=== PATIENT | male | born 1980 | race Caucasian/White ===

== ENCOUNTER 2017-01-16 19:15 | Emergency (ER) | payer MEDICAID ==
[2017-01-16 19:27] VITALS: RESP 18
[2017-01-16] MEDS: SULFAMETHOX/TMP 800/160 MG 1 TAB PO ONE (20:02)
[2017-01-16] MEDS: LIDOCAINE 2% VISCOUS 15 ML UDCUP PO ONE (20:02)
[2017-01-16] MEDS: HYOSCYAMINE SULFATE 0.125 MG TAB PO ONE (20:02)
[2017-01-16] MEDS: NS 1,000 ML IV ONE (20:02)
[2017-01-16] MEDS: MAG HYDROX/AL HYDROX/SIMETH 30 ML UDCUP PO ONE (20:02)
[2017-01-16] MEDS: CEPHALEXIN 500 MG CAP PO ONE (20:02)
[2017-01-16] MEDS ORDERED: CEPHALEXIN 500 MG CAP PO ONE (20:04)
[2017-01-16 20:06] LABS: % IMMATURE GRANULYOCYTES 0.4 % (0.0-1.1); ABSOLUTE IMMATURE GRANULOCYTES 0.03 10^3/uL (0.00-0.10); ADD DIFF? NO; ADD MORPH? NO; ADD SCAN? NO; ATYPICAL LYMPHOCYTE FLAG 0 (0-99); FRAGMENT RBC FLAG 0 (0-99); HEMATOCRIT 45.1 % (40.0-51.0); HEMOGLOBIN 15.8 g/dL (13.7-17.5); LEFT SHIFT FLG 0 (0-99); LIPEMIA HEMOLYSIS FLAG 90 (0-99); MEAN CELL HEMOGLOBIN 32.2 pg (27.9-34.1); MEAN PLATELET VOLUME 9.6 fL (8.7-11.7); PLATELET CLUMPS FLAG 0 (0-99); PLATELET COUNT 289 10^3/uL (150-400); RED CELL DISTRIBUTION WIDTH 13.2 % (11.5-15.2)
--- NOTE | 2017-01-16 20:15 | EDPHY ---
H & P Time Seen by Provider: 01/16/17 19:34 HPI/ROS: CHIEF COMPLAINT: Abdominal pain HISTORY OF PRESENT ILLNESS: Patient has symptoms for the last 2 days. He thinks he might have ingested some bad spring water [place] [facility] [place]. He has some intermittent epigastric and upper abdominal "gurgling" and sweating which is crampy and severe pain for a few minutes and then resolves. Associated with some looser stools and diarrhea but no melena or coffee-ground emesis. No bright red blood per rectum. Abdominal pain is not better worse with oral intake but he has not had much to eat or drink over the last couple of days. REVIEW OF SYSTEMS: Eye: no change in vision ENT: no sore throat Cardiac: no chest pain or syncope Pulmonary: no cough or SOB Abdomen: HPI Musculoskeletal: no back pain Skin: Redness where he has a 2-day-old abrasion on his right ring finger Neuro: no headache Constitutional: no fever : no urinary symptoms A comprehensive 10 point review of systems is otherwise negative aside from elements mentioned in the history of present illness. PAST MEDICAL HISTORY: HIV with detectable viral load Social history: Tobacco smoker General Appearance: Alert and conversant, cooperative. Eyes: No scleral icterus. ENT, Mouth: Normal mucous membranes. Respiratory: Normal respiratory effort, breath sounds equal, lungs are clear to auscultation. Cardiovascular: Regular rate and rhythm. Gastrointestinal: Abdomen is soft and only mild epigastric tenderness. No rebound or guarding, normal bowel sounds, not distended. No McBurney's point tenderness. Negative Mc sign. Neurological: Alert and oriented x3. Normally conversant. Face symmetric, normal movement and sensation in all extremities. Skin: Patient has an abrasion on the proximal phalanx of the right ring finger on the dorsum with some surrounding erythema. No lymphangitis and no fluctuance. Normal range of motion of the finger. Does not have palmar tenderness. I can range it including full extension. Musculoskeletal: No peripheral edema and no joint swelling. Psychiatric: Not agitated. Emergency Department course/MDM: 2043: Labs reviewed, I think pancreatitis or hepatitis is unlikely. Gallstones unlikely. Will treat with oral antibiotics for his finger infection given he has HIV with a detectable viral load, compromised immune system. Does not have evidence of tenosynovitis or deep space infection. I think it is unlikely that he has acute surgical abdominal process. Heart rate down to 64 on discharge. The patient denies domestic violence but says sometimes he does not feel safe at home. He asks that we not do any type of reporting to anyone, including to human services or law enforcement. He tells me he does not feel that he is at risk of or injury tonight. Smoking Status: Current every day smoker Constitutional: Initial Vital Signs Temperature (C) 37.2 C 01/16/17 19:23 Heart Rate 108 H 01/16/17 19:23 Respiratory Rate 18 01/16/17 19:23 Blood Pressure 132/92 H 01/16/17 19:23 O2 Sat (%) 95 01/16/17 19:23 O2 Delivery Mode Room Air Allergies/Adverse Reactions: No Known Allergies Allergy (Unverified 04/09/16 07:15) Home Medications: Medication Instructions Recorded Cephalexin [Keflex] 500 mg PO QID #40 cap 01/16/17 Sulfamethox/Tmp 800/160 mg 1 tab PO BID@1000,2200 #20 tab 01/16/17 [Bactrim Ds] [place] 01/16/17 Medical Decision Making Differential Diagnosis: Differential diagnosis considered for abdominal pain including but not limited to appendicitis, cholecystitis, pancreatitis, gastritis, appendicitis, reflux, and urinary tract infection. - Data Points Laboratory Results: Laboratory Results 01/16/17 20:00 01/16/17 20:00 01/16/17 01/16/17 20:00 20:00 WBC 8.20 10^3/uL 10^3/uL (3.80-9.50) RBC 4.90 10^6/uL 10^6/uL (4.40-6.38) Hgb 15.8 g/dL g/dL (13.7-17.5) Hct 45.1 % % (40.0-51.0) MCV 92.0 fL fL (81.5-99.8) MCH 32.2 pg pg (27.9-34.1) MCHC 35.0 g/dL g/dL (32.4-36.7) RDW 13.2 % % (11.5-15.2) Plt Count 289 10^3/uL 10^3/uL (150-400) MPV 9.6 fL fL (8.7-11.7) Neut % (Auto) 53.4 % % (39.3-74.2) Lymph % (Auto) 33.3 % % (15.0-45.0) [place] % (Auto) 11.6 % % (4.5-13.0) Eos % (Auto) 0.9 % % (0.6-7.6) Baso % (Auto) 0.4 % % (0.3-1.7) Nucleat RBC Rel Count 0.0 % % (0.0-0.2) Absolute Neuts (auto) 4.39 10^3/uL 10^3/uL (1.70-6.50) Absolute Lymphs (auto) 2.73 10^3/uL 10^3/uL (1.00-3.00) Absolute Monos (auto) 0.95 10^3/uL H 10^3/uL (0.30-0.80) Absolute Eos (auto) 0.07 10^3/uL 10^3/uL (0.03-0.40) Absolute Basos (auto) 0.03 10^3/uL 10^3/uL (0.02-0.10) Absolute Nucleated RBC 0.00 10^3/uL 10^3/uL (0-0.01) Immature Gran % 0.4 % % (0.0-1.1) Immature Gran # 0.03 10^3/uL 10^3/uL (0.00-0.10) Sodium 141 mEq/L mEq/L (134-144) Potassium 3.8 mEq/L mEq/L (3.5-5.2) Chloride 103 mEq/L mEq/L (97-110) Carbon Dioxide 24 mEq/l mEq/l (22-31) Anion Gap 14 mEq/L mEq/L (8-16) BUN 23 mg/dL mg/dL (7-23) Creatinine 0.9 mg/dL mg/dL (0.7-1.3) Estimated GFR > 60 Glucose 99 mg/dL mg/dL (70-100) Calcium 9.6 mg/dL mg/dL (8.5-10.4) Total Bilirubin 1.8 mg/dL H mg/dL (0.1-1.4) Conjugated Bilirubin 0.4 mg/dL mg/dL (0.0-0.5) Unconjugated Bilirubin 1.4 mg/dL H mg/dL (0.0-1.1) AST 106 IU/L H IU/L (17-59) ALT 52 IU/L IU/L (21-72) Alkaline Phosphatase 91 IU/L IU/L (38-126) Total Protein 8.3 g/dL H g/dL (6.3-8.2) Albumin 4.7 g/dL g/dL (3.5-5.0) Lipase 99 IU/L IU/L (23-300) Medications Given: Discontinued Medications Al Hydroxide/Mg Hydroxide (Maalox Susp) 30 ml PO ONCE ONE Stop: 01/16/17 19:50 Last Admin: 01/16/17 20:02 Dose: 30 ml Cephalexin HCl (Keflex) 500 mg PO EDNOW ONE PRN Reason: Protocol Stop: 01/16/17 19:50 Last Admin: 01/16/17 20:02 Dose: 500 mg Hyoscyamine Sulfate (Levsin, Hyomax-Sl) 0.25 mg PO ONCE ONE Stop: 01/16/17 19:50 Last Admin: 01/16/17 20:02 Dose: 0.25 mg Sodium Chloride (Ns) 1,000 mls @ 0 mls/hr IV EDNOW ONE; Wide Open PRN Reason: Protocol Stop: 01/16/17 19:50 Last Admin: 01/16/17 20:02 Dose: 1,000 mls Lidocaine (Lidocaine 2% Viscous) 15 ml PO ONCE ONE Stop: 01/16/17 19:50 Last Admin: 01/16/17 20:02 Dose: 15 ml Trimethoprim/Sulfamethoxazole (Bactrim Ds) 1 ea PO EDNOW ONE PRN Reason: Protocol Stop: 01/16/17 19:50 Last Admin: 01/16/17 20:02 Dose: 1 ea Departure - Departure Disposition: Home, Routine, Self-Care Clinical Impression: Cellulitis of right ring finger Abdominal pain Qualifiers: Abdominal location: epigastric Qualified Code(s): R10.13 - Epigastric pain Condition: Good Instructions: Cellulitis (ED), Acute Abdominal Pain (ED) Referrals: Alejadnra Man MD [Primary Care Provider] - As per Instructions Prescriptions: Cephalexin [Keflex] 500 mg PO QID #40 cap Sulfamethox/Tmp 800/160 mg [Bactrim Ds] 1 tab PO BID@1000,2200 #20 tab
[2017-01-16 20:24] LABS: ALANINE AMINOTRANSFERASE 52 IU/L (21-72); ALBUMIN 4.7 g/dL (3.5-5.0); ALKALINE PHOSPHATASE 91 IU/L (38-126); ANION GAP 14 mEq/L (8-16); ASPARTATE AMINOTRANSFERASE 106 IU/L (17-59); BILIRUBIN,TOTAL 1.8 mg/dL (0.1-1.4); BILIRUBIN-CONJUGATED 0.4 mg/dL (0.0-0.5); BILIRUBIN-UNCONJUGATED 1.4 mg/dL (0.0-1.1); CALCIUM 9.6 mg/dL (8.5-10.4); CARBON DIOXIDE 24 mEq/l (22-31); CHLORIDE 103 mEq/L (97-110); CREATININE 0.9 mg/dL (0.7-1.3); GLOMERULAR FILTRATION RATE > 60; GLUCOSE 99 mg/dL (70-100); POTASSIUM 3.8 mEq/L (3.5-5.2); SODIUM 141 mEq/L (134-144); TOTAL PROTEIN 8.3 g/dL (6.3-8.2)
[2017-01-16] MEDS ORDERED: BACITRACIN OINTMENT 1 PACKET TP ONE (21:03)
[2017-01-16 21:33] VITALS: BP 119/72; PULSE 64; TEMP 98.2; O2SAT 94
== END 2017-01-16 21:40 | disposition home or self-care (01) ==
DX: R10.13 Epigastric pain (principal); L03.011 Cellulitis of right finger; F17.200 Nicotine dependence, unspecified, uncomplicated; E86.9 Volume depletion, unspecified

== ENCOUNTER → 2017-03-13 | Outpatient (CLI) | payer MEDICAID | LOC: FIMAGING 11:07 → EDSTATUS 11:08 | PROVIDERS: ATTEND Family Medicine | DX: Z11.1 Encounter for screening for respiratory tuberculosis (principal) ==